=== PATIENT | female | born 1960 | race Caucasian/White ===

== ENCOUNTER 2017-06-01 10:40 | Emergency (ER) | payer SELFPAY ==
[2017-06-01 11:19] VITALS: BP 146/67; PULSE 69; RESP 18; TEMP 97.9; O2SAT 97
--- NOTE | 2017-06-01 15:07 | PD ---
HPI Chief Complaint: Art Consultant Problem Time Seen by Provider: 11:19 Travel History International Travel<30 days: No Contact w/Intl Traveler<30days: No Traveled to known affect area: No History of Present Illness HPI Pt is a well-appearing 56-year-old female presenting from [place]. She states she was told by her PCP to come to the ED to have pacemaker/defibrillator read. She states she missed her appointment last week. Patient denies any chest pain , shortness of breath, arrhythmias. Pacemaker is through [facility]. PFSH Past Medical History Cardiovascular Problems: Yes ?: Not Social History Tobacco Use: Yes Review of Systems Except as stated in HPI: all other systems reviewed are Neg Physical Exam Narrative GENERAL: Well-developed, well-nourished, alert female. Presenting in no acute distress SKIN: Warm and dry. HEAD: Normocephalic. EYES: No scleral icterus. No injection or drainage. NECK: Supple, trachea midline. No JVD or lymphadenopathy. CARDIOVASCULAR: Regular rate RESPIRATORY: No accessory muscle use. Data Data Last Documented VS Vital Signs Date Time Temp Pulse Resp B/P (MAP) Pulse Ox O2 Delivery O2 Flow Rate FiO2 06/01/17 11:19 97.9 69 18 146/67 (93) 97 [facility] Medical Decision Making Medical Screen Exam Complete: Yes Emergency Medical Condition: Yes Interpretation(s) Vital Signs Date Time Temp Pulse Resp B/P (MAP) Pulse Ox O2 Delivery O2 Flow Rate FiO2 06/01/17 11:19 97.9 69 18 146/67 (93) 97 Differential Diagnosis Normal examination versus cardiac arrhythmia versus other Narrative Course Patient is well-appearing female presented to have her pacemaker evaluated. She has no complaints of pain or pacemaker firing. Patient's vital signs are stable. Patient is awaiting bed placement. Patient was called be placed in a bed, she was no longer found in the emergency department. Patient left AMA. Diagnosis Primary Impression: Left against medical advice Condition: Stable Olga Nathan Jun 01, 2017 15:07
== END 2017-06-02 01:31 | disposition left against medical advice (07) ==
LOC: NED 10:40
DX: Z45.018 Encounter for adjustment and management of other part of cardiac pacemaker (principal); Z53.20 Procedure and treatment not carried out because of patient's decision for unspecified reasons
CPT/HCPCS: 99281